=== PATIENT | female | born 2000 | race Caucasian/White ===

== ENCOUNTER 2021-09-14 12:04 | Emergency (ER) | payer OTHER, MEDICAID ==
[~2021-09-14] VITALS: Ht 154.9 cm; Wt 68.2 kg
[2021-09-14 12:26] VITALS: BP 152/83; TEMP 99.8
[2021-09-14] MEDS ORDERED: FLEXERIL 1010 MG/TAB PO (13:52)
[2021-09-14 14:35] VITALS: PULSE 76
== END 2021-09-14 14:35 | disposition home or self-care (01) ==
LOC: COL.ER 12:04
DX: S00.83XA Contusion of other part of head, initial encounter (principal); S80.01XA Contusion of right knee, initial encounter; S60.222A Contusion of left hand, initial encounter; V49.40XA Driver injured in collision with unspecified motor vehicles in traffic accident, initial encounter